=== PATIENT | male | born 2005 | race Caucasian/White ===

== ENCOUNTER 2024-05-30 23:13 | Emergency (ER) | payer BC, SELFPAY ==
[2024-05-30 23:17] VITALS: BMI 24.5
[2024-05-30 23:21] VITALS: BP 127/73
[2024-05-31] VITALS: BP 118/69
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
== END 2024-05-31 01:23 | disposition home or self-care (01) ==
LOC: EMR 23:13
PROVIDERS: EMERGENCY PHYSICIAN Emergency Medicine
DX: S31.010A Laceration without foreign body of lower back and pelvis without penetration into retroperitoneum, initial encounter (principal); W25.XXXA Contact with sharp glass, initial encounter; F17.200 Nicotine dependence, unspecified, uncomplicated; J45.909 Unspecified asthma, uncomplicated
CPT/HCPCS: 99282; 12001